=== PATIENT | male | born 1995 | race Caucasian/White ===

== ENCOUNTER → 2017-05-01 | Day surgery (SDC) | payer BC ==
[2017-04-28 17:04] LABS: BASOPHILS # (AUTO) 0.1 (0.0-0.1); BASOPHILS % 0.7 % (0.0-1.0); EOSINOPHILS # (AUTO) 0.3 (0.0-0.4); EOSINOPHILS % 2.5 % (0.0-6.0); HEMOGLOBIN 16.1 g/dL (14.0-18.0); LYMPHOCYTES # (AUTO) 2.6 (1.0-3.2); LYMPHOCYTES % 23.7 % (18.0-39.1); MEAN CORPUSCULAR HEMOGLOBIN 30.3 pg (28-32); MEAN CORPUSCULAR VOLUME 86.6 fL (81-99); MONOCYTES # (AUTO) 0.9 (0.2-0.8); MONOCYTES % 8.1 % (4.4-11.3); NEUTROPHILS % 64.7 % (38.7-80.0); PLATELET COUNT 225 x10e3/uL (140-360); RED BLOOD COUNT 5.31 x10e6/uL (4.3-5.7)
[2017-04-28 17:20] LABS: ANION GAP 13.1 mmol/L (8-16); BLOOD UREA NITROGEN 16 mg/dL (7-26); BUN/CREATININE RATIO 15 (6-25); CALCIUM 9.5 mg/dL (8.4-10.2); CARBON DIOXIDE 26 mmol/L (22-29); CHLORIDE 106 mmol/L (98-107); CREATININE, SERUM 1.06 mg/dL (0.72-1.25); EST GLOMERULAR FILTRATION RATE > 60 ML/MIN (60-); GLUCOSE 86 mg/dL (74-118); POTASSIUM 4.1 mmol/L (3.5-5.1); SODIUM 141 mmol/L (136-145)
[~2017-05-01] MED LIST: BOTULINUM TOXIN TYPE A 100 UNIT VIAL IM ONE; BUPIVACAINE 0.25%/EPI 30ML SDV INJ ONE; DICYCLOMINE HCL20 MG PO; FENTANYL CITRATE/PF 100MCG/2 ML INJ ONE; GELATIN SPONGE SZ 100 ONE; HYDROCODON-ACE1 EAC3 PO; LIDOCAINE HCL 1% LOCAL INJ 20 ML VIAL ONE; LIDOCAINE JELLY 2% 10ML URO-JET ONE; LYRICA50 MG PO; MIDAZOLAM HCL 2 MG/2 ML VIAL ONE; TYLENOL WITH C1 EACH PO
--- NOTE | 2017-05-01 10:19 | Operative Report ---
DATE OF PROCEDURE: May 01, 2017 PREOPERATIVE DIAGNOSES 1. Rectal bleeding. 2. Recurrent levator sling syndrome. POSTOPERATIVE DIAGNOSES 1. Rectal bleeding. 2. Recurrent levator sling syndrome. OPERATIONS PERFORMED 1. Rectal exam under anesthesia. 2. Botox injection of bilateral levator slings. ANESTHESIA: General. COMPLICATIONS: None. ESTIMATED BLOOD LOSS: Minimal. DESCRIPTION OF PROCEDURE: With the patient lying in bed in the lithotomy position under good general anesthesia, the perineum was prepped with Betadine solution and draped in the usual manner. Rectal examination under anesthesia at this point revealed suspected tight bilateral levator sling spasms, which was worse on the left side. There was some minimal hemorrhoids. Otherwise, the rest of the rectal examination was within normal. Bilateral Botox injections were then performed with 100 units of Botox and both sides were totally and completely blocked at several levels of the levator sling. Hemostasis was ascertained. A perianal block was also performed with 0.25% Marcaine. The whole area was inspected for bleeding and there was none. The patient tolerated the procedure well, and returned to the recovery room in stable condition. Job#: [id number]
== END | disposition home or self-care (01) ==
LOC: OR 05:53
PROVIDERS: ATTEND Surgery
DX: M62.838 Other muscle spasm (principal); K62.5 Hemorrhage of anus and rectum; K64.8 Other hemorrhoids; Z01.812 Encounter for preprocedural laboratory examination
CPT/HCPCS: 36415; 64999; 80048; 85025; J0587; J2250; J2001

== ENCOUNTER 2018-05-23 14:20 | Emergency (ER) | payer BC, OTHER ==
[~2018-05-23] VITALS: Ht 175.3 cm; Wt 99.8 kg
[~2018-05-23 14:20] MED LIST changes: -BOTULINUM TOXIN TYPE A 100 UNIT VIAL IM ONE; -BUPIVACAINE 0.25%/EPI 30ML SDV INJ ONE; -FENTANYL CITRATE/PF 100MCG/2 ML INJ ONE; -GELATIN SPONGE SZ 100 ONE; -LIDOCAINE HCL 1% LOCAL INJ 20 ML VIAL ONE; -LIDOCAINE JELLY 2% 10ML URO-JET ONE; -MIDAZOLAM HCL 2 MG/2 ML VIAL ONE
[2018-05-23] MEDS ORDERED: ONDANSETRON HCL 4 MG ORAL DISINTEGRATING TAB PO STA (14:49)
[2018-05-23] MEDS ORDERED: SODIUM CHLORIDE 0.9% 1000ML 1,000 ML IV SCH (15:00)
[2018-05-23] MEDS ORDERED: SODIUM CHLORIDE 0.9% 1000 ML BAG IV STA (16:09)
[2018-05-23 16:47] VITALS: BP 147/85
== END 2018-05-23 17:00 | disposition home or self-care (01) ==
LOC: FSED 14:20
DX: R11.2 Nausea with vomiting, unspecified (principal); R19.7 Diarrhea, unspecified; K52.9 Noninfective gastroenteritis and colitis, unspecified; E86.0 Dehydration; K21.9 Gastro-esophageal reflux disease without esophagitis
CPT/HCPCS: 80053; 81003; 85025; 99284; J7030; Q0162

== ENCOUNTER → 2020-04-03 | Day surgery (SDC) | payer OTHER ==
[2020-03-31 15:32] LABS: BASOPHILS # (AUTO) 0.1 (0.0-0.1); BASOPHILS % 0.6 % (0.0-1.0); EOSINOPHILS # (AUTO) 0.2 (0.0-0.4); HEMATOCRIT 44.5 % (38.2-49.6); HEMOGLOBIN 14.9 g/dL (14.0-18.0); LYMPHOCYTES # (AUTO) 2.4 (1.0-3.2); MEAN CORPUSCULAR HGB CONC 33.5 g/dL (31-35); MEAN CORPUSCULAR VOLUME 86.6 fL (81-99); MONOCYTES # (AUTO) 0.9 (0.2-0.8); NEUTROPHILS # (AUTO) 5.4 (2.1-6.9); NEUTROPHILS % 60.1 % (38.7-80.0); PLATELET COUNT 222 x10e3/uL (140-360); RED BLOOD COUNT 5.14 x10e6/uL (4.3-5.7); RED CELL DISTRIBUTION WIDTH 12.3 % (11.7-14.4)
[~2020-04-03] MED LIST changes: +BOTULINUM TOXIN TYPE A 100 UNIT VIAL IM ONE; +BUPIVACAINE 0.25% 30ML SDV ONE; +DEXAMETHASONE SOD PHOS INJ 4 MG/ML VIAL ONE; +FENTANYL CITRATE/PF 100MCG/2 ML INJ ONE; +KETOROLAC TROMETHAMINE 30 MG/ML VIAL ONE; +LIDOCAINE 1% W/EPINEPHRINE 20 ML VIAL ONE; +LIDOCAINE HCL 2% 30 ML TUBE ONE; +LIDOCAINE HCL 2% LOCAL INJ 5 ML SDV VIAL INJ ONE; +MIDAZOLAM HCL 2 MG/2 ML VIAL ONE; +ONDANSETRON HCL INJ 2MG/ML 2ML 2 MG/ML VIAL ONE; +PROPOFOL IV EMULSION 10 MG/ML 20 ML VIAL ONE; +SEVOFLURANE INHAL SOLN 250 ML PEN BTL ONE
[2020-04-03 11:10] VITALS: BP 124/88
== END | disposition home or self-care (01) ==
LOC: OR 08:17
PROVIDERS: ATTEND Surgery
DX: M62.89 Other specified disorders of muscle (principal); K21.9 Gastro-esophageal reflux disease without esophagitis; Z01.812 Encounter for preprocedural laboratory examination; Z20.828 Contact with and (suspected) exposure to other viral communicable diseases
CPT/HCPCS: 36415; 64646; 85025; J0587; J1100; J1885; J2001; J2250; J2405; J2704; J3010; U0002